=== PATIENT | male | born 1975 ===

== ENCOUNTER → 2022-08-31 14:14 | Outpatient (CLI) | payer OTHER, SELFPAY ==
--- NOTE | ~2022-08-31 | CT_ITS ---
CT of the Abdomen and Pelvis: Indication: Abdominal pain Technique: 2.5 mm axial scans were obtained through the abdomen and pelvis following intravenous adm inistration of 100 cc of Omnipaque 350. Dose reduction technique was used on this scan by utilizing a utomated exposure control and iterative reconstruction technique. The dose-length product (DLP) was 5 27.64 mGy-cm. Findings: Scans through the lung bases are unremarkable. The liver, spleen, pancreas, gallbladder, adrenals and kidneys are within normal limits. No evidence of aortic aneurysm. No lymphadenopathy. No bowel obstruction or bowel wall thickening. There is no evidence to suggest acute appendicitis. Images through the pelvis were performed. Urinary bladder unremarkable. Prostate gland and seminal ve sicles are unremarkable. Small bilateral fat-containing hernias are present. Impression: Small bilateral fat-containing inguinal hernias. No other significant findings. Reviewed, dictated and finalized at [facility]. Impression: Small bilateral fat-containing inguinal hernias. No other significant findings.
== END ==
DX: R10.84 Generalized abdominal pain (principal); Z83.79 Family history of other diseases of the digestive system; K40.20 Bilateral inguinal hernia, without obstruction or gangrene, not specified as recurrent
CPT/HCPCS: 74177; Q9967

== ENCOUNTER → 2023-05-11 14:46 | Outpatient (CLI) | payer OTHER, SELFPAY ==
--- NOTE | ~2023-05-11 | XR_ITS ---
EXAM: XR shoulder RT min 2V DATE: 05/11/2023 15:26 HISTORY: HAD A FALL IN BR, HIT HEAD ON SINK . COMPARISON: None available. FINDINGS: Normal mineralization. No acute fracture or dislocation. No lytic or blastic lesion. Mild AC joint and moderate glenohumeral joint osteoarthritic change. Chronic appearing inferior glenoid de formity, likely old osseous Bankart lesion. No erosion or periosteal change. Soft tissues within norm al limits. IMPRESSION: No acute osseous finding in the right shoulder. 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 Reviewed, dictated and finalized at location [facility]. GHT SERVICE INSPECTOR IMPRESSION: No acute osseous finding in the right shoulder. Mild AC joint and m oderate chronic humeral joint osteoarthritis. 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
--- NOTE | ~2023-05-11 | XR_ITS ---
EXAM: XR cervical spine 4-5V DATE: 05/11/2023 15:26 HISTORY: HAD A FALL IN BR, HIT HEAD ON SINK . COMPARISON: None available. FINDINGS: Craniocervical association and atlantoaxial joint are aligned. No prevertebral soft tissue swelling. Trace retrolistheses at C3-4 and C5-6, presumably on a degenerative basis. Vertebral body heights are maintained. Mild multilevel degenerative disc disease. Mild multilevel facet arthropathy. Mild bilateral neural foraminal narrowing at C3-4. Moderate right neural foraminal narrowing at C5-6 . IMPRESSION: No acute fracture or traumatic malalignment detected in the cervical spine. Reviewed, dictated and finalized at location [facility]. RER IMPRESSION: No acute fracture or traumatic malalignment detected in the cervica l spine.
--- NOTE | ~2023-05-11 | XR_ITS ---
EXAM: XR nasal bones min 3V DATE: 05/11/2023 15:26 HISTORY: HAD A FALL IN BR, HIT HEAD ON SINK . COMPARISON: None available. FINDINGS: Intact, symmetric orbits. Aerated spaces are clear. Mild leftward bowing of the osseous na migel septum. Tiny ossific density projecting superior to the tip of the nasal bones. Soft tissue swell ing and small skin defect over the bridge of the nose. IMPRESSION: Tiny ossific density projecting just superior to the tip of the nasal bones may represent a small fracture fragment or soft tissue debris. No displaced nasal bone fracture detected. Reviewed, dictated and finalized at location [facility]. ICAL STUDY MANAGER IMPRESSION: Tiny ossific density projecting just superior to the tip of the scot al bones may represent a small fracture fragment or soft tissue debris. No disp laced nasal bone fracture detected.
== END ==
DX: J34.89 Other specified disorders of nose and nasal sinuses (principal); M19.011 Primary osteoarthritis, right shoulder; W01.198A Fall on same level from slipping, tripping and stumbling with subsequent striking against other object, initial encounter
CPT/HCPCS: 70160; 72050; 73030